=== PATIENT | female | born 1945 | race Caucasian/White ===

== ENCOUNTER 2018-08-11 05:30 | Inpatient (IN) | payer OTHER ==
[2018-07-22 12:56] VITALS: BMI 26.6
[2018-08-11] MEDS ORDERED: CEFAZOLIN 1 GM in DEXTROSE 5%-WATER - 100 ML IVPB ONE (08:23)
--- NOTE | 2018-08-11 08:26 | HP ---
History & Physical Update - History History: No Change - Physical Physical: No Change - Assessment Assessment: No Change - Plan Plan: No Change (Initial H&P is located in pateint's chart and will be scanned into her e-chart LAURA. Here today for elective open abdominal procedure to remove para-aortic cystic mass.)
[2018-08-11] MEDS ORDERED: HEPARIN NA (PORCINE) 5,000 UNITS/ML 1ML VIAL ONE (09:06)
[2018-08-11] MEDS ORDERED: POVIDONE-IODINE OINTMENT 10% - 28.4 GM TUBE ONE (09:06)
[2018-08-11] MEDS ORDERED: fentaNYL CITRATE 250 MCG/5 ML VIAL ONE (09:15)
[2018-08-11] MEDS ORDERED: MIDAZOLAM HCL 2 MG/2 ML SINGLE DOSE VIAL ONE ×2 (09:15)
[2018-08-11] MEDS ORDERED: PROPOFOL 20 ML ONE (09:15)
[2018-08-11] MEDS ORDERED: ROCURONIUM BROMIDE 50 MG/5 ML VIAL ONE ×2 (09:15→10:16)
--- NOTE | 2018-08-11 09:18 | HP ---
Admitting History and Physical - Admission History of Present Illness: 73 year old woman with a slow growing mass in the retroperitoneum between aorta and IVC. The mass measured 7 cm x 4 x [address] scan with calcified wall and contents. She has no pain or lower extremity neurologic symptoms. History Source: Patient, Medical Record Limitations to Obtaining History: No Limitations - Smoking History Smoking history: Never smoked Have you smoked in the past 12 months: No - Alcohol/Substance Use Hx Alcohol Use: No Home Medications - Allergies Allergies/Adverse Reactions: Allergies Allergy/AdvReac Type Severity Reaction Status Date / Time No Known Drug Allergies Allergy Verified 08/11/18 07:58 - Home Medications Home Medications: Ambulatory Orders Aspirin Coated [Ecotrin -] 81 mg PO DAILY 07/22/18 Calcium Carbonate [Calcium] 500 mg PO DAILY 07/22/18 Cholecalciferol (Vitamin D3) [Vitamin D3] 1,000 unit PO DAILY 07/22/18 Magnesium Oxide [Magnesium] 400 mg PO DAILY 07/22/18 Physical Examination Vital Signs: Vital Signs Temperature 97.8 F 08/11/18 07:29 Pulse Rate 66 08/11/18 07:29 Respiratory Rate 18 08/11/18 07:29 Blood Pressure 136/71 08/11/18 07:29 O2 Sat by Pulse Oximetry (%) 98 08/11/18 07:30 Constitutional: Yes: No Distress Eyes: Yes: WNL HENT: Yes: WNL Neck: Yes: WNL, Supple Cardiovascular: Yes: Regular Rate and Rhythm Respiratory: Yes: Regular Gastrointestinal: Yes: Soft. No: Tenderness Extremities: Yes: WNL Edema: No Peripheral Pulses WNL: Yes Problem List - Problems (1) Retroperitoneal mass Assessment/Plan: Slowly enlarging mass between aorta and IVC. Possible etiologies include teratoma, cystic mass, lymphoma. CT does not suggest a vascular etiology. Plan resection. Code(s): R19.00 - INTRA-ABD AND PELVIC SWELLING, MASS AND LUMP, UNSP SITE
[2018-08-11] MEDS ORDERED: LIDOCAINE HCL/PF 2% SDV 5ML VIAL ONE (09:44)
[2018-08-11] MEDS ORDERED: ePHEDrine SULFATE 50 MG/1 ML AMPULE ONE (09:45)
[2018-08-11] MEDS ORDERED: ceFAZolin SODIUM 1 GM VIAL IVPB ONE (09:55)
[2018-08-11] MEDS ORDERED: DEXAMETHASONE SOD PHOSPHATE 4 MG/1 ML VIAL ONE (10:43)
[2018-08-11] MEDS ORDERED: NEOSTIGMINE METHYLSULFATE 0.5 MG/ML - 10 ML MDV ONE (11:18)
[2018-08-11] MEDS ORDERED: GLYCOPYRROLATE 0.2 MG/1 ML VIAL ONE ×2 (11:18)
--- NOTE | 2018-08-11 11:41 | OP ---
Operative Note - Note: Operative Date: 08/11/18 Pre-Operative Diagnosis: Retroperitoneal mass Operation: Excision retroperitoneal mass Findings: 8 x x4 x 4 cm mass in upper retroperitoneum lying between aorta and IVC overlying spine. There was fibrotic adhesion to the vessels but no major vascular attachments. No abnormal abdominal findings Post-Operative Diagnosis: Same as Pre-op Surgeon: Bryant Moyer Front Window Cashier: Sukhjinder Bajwa Anesthesiologist/CLASSIFICATION INSPECTOR: Noni Das Anesthesia: General Specimens Removed: Retroperitoneal mass Estimated Blood Loss (mls): 50 Operative Report Dictated: Yes
[2018-08-11] MEDS ORDERED: ONDANSETRON 4 MG/2 ML VIAL IVPUSH PRN (12:03)
--- NOTE | 2018-08-11 12:03 | SURG ---
Surgery Pricing Associate Note Pricing Associate: Sukhjinder Bajwa PA-C Date of Service: 08/11/18 Diagnosis: Retroperitoneal mass Procedure: Excision retroperitoneal mass I was present for the entirety of the operative procedure. For further detail, please refer to operative report. Visit type - Case Type Case Type: Scheduled - New patient This patient is new to me today: Yes Date on this admission: 08/11/18
[2018-08-11] MEDS ORDERED: ACETAMINOPHEN 325 MG TABLET (FP) PO PRN (12:06)
[2018-08-11] MEDS ORDERED: BISACODYL 5 MG TABLET.DR (FP) PO PRN (12:06)
[2018-08-11] MEDS ORDERED: DOCUSATE SODIUM 100 MG CAPSULE (FP) PO PRN (12:06)
[2018-08-11] MEDS ORDERED: IBUPROFEN 800 MG/8 ML IJ IVPB PRN (12:06)
[2018-08-11] MEDS: HYDROmorphone *PCA* 10MG/50ML DISP.SYRIN PCA SCH (12:22)
[2018-08-11] MEDS: LACTATED RINGERS SOLUTION 1,000 ML IV SCH ×2 (13:00→19:55)
--- NOTE | 2018-08-11 20:15 | OP ---
DATE OF OPERATION: 08/11/2018 SURGEON: Bryant Moyer MD GROUP UNDERWRITER: ROCKY Rodriguez PROCEDURE: Excision of retroperitoneal mass. PREOPERATIVE DIAGNOSIS: Retroperitoneal mass. POSTOPERATIVE DIAGNOSIS: Retroperitoneal mass. ANESTHESIA: General. ANESTHESIOLOGIST: Noni Das MD OPERATIVE FINDINGS: There was an 8 x 4 x 4 cm egg-shaped mass lying in the upper retroperitoneum. It was adjacent to the aorta and inferior vena cava. It was adherent to the vessels, fibrotic tissue and to the spine. There were no major vascular attachments. No other intraabdominal abnormalities were identified on manual evaluation. OPERATIVE PROCEDURE: Following routine patient identification, general anesthesia was induced. The abdomen was prepped with ChloraPrep. Timeout was performed. The peritoneal cavity was entered through an upper midline incision which was carried through subcutaneous tissues and muscle fascia using cautery. Abdominal exploration was carried out with the above-noted findings. A self-retaining retractor was placed. The hepatic flexure and right colon were then mobilized along their lateral border using cautery and LigaSure to allow medial rotation of the large intestine. The duodenum was mobilized along its lateral border with a Sandra maneuver and was also retracted medially away from the underlying mass. The mass was then dissected free using cautery, blunt and sharp dissection to free it on its medial and lateral aspects. Dense fibrous adhesions to the para-aortic tissue were divided sharply. The mass was freed at the superior and inferior margins and then slowly elevated off of the spine using cautery and blunt dissection. It was finally freed from its attachments to the inferior vena cava and removed. It was sent to the pathology department fresh. The retroperitoneum was irrigated and checked for hemostasis, and additional cautery was applied as needed. The retroperitoneal tissues were then reapproximated using running suture of 3-0 Vicryl. The colon was returned to its normal position in the abdomen. The midline fascia was then closed with running suture of 0 PDS. Subcutaneous tissues were irrigated, and the skin was closed with nyasia. Sterile dressing was applied, and the patient was extubated and taken to the recovery room in stable condition. Jena [id number]
[2018-08-12 07:51] LABS: HEMATOCRIT 32.4 % (32.4-45.2); HEMOGLOBIN 10.9 GM/dL (10.7-15.3); MCH 29.9 pg (25.7-33.7); MCHC 33.6 g/dl (32.0-36.0); MEAN PLT VOLUME 8.2 fl (7.5-11.1); PLATELET COUNT 169 K/MM3 (134-434); RBC 3.63 M/mm3 (3.60-5.2); RDW 13.4 % (11.6-15.6); WHITE BLOOD COUNT 9.1 K/mm3 (4.0-10.0)
--- NOTE | 2018-08-12 08:19 | PN ---
Progress Note (short form) - Note Progress Note: POD #1 Alert. Recovering from surgery. C/o incisional tenderness. Adequate pain control via SUGAR PRESSER. Hasn't been OOB yet. Her gold cath was removed at 7AM...hasn' t voided yet. Denies n/v/f/c, CP, palpitations, SOB or DURAN. Last Vital Signs Temp Pulse Resp BP Pulse Ox 98.3 F 78 18 112/62 98 08/12/18 06:17 08/12/18 06:58 08/12/18 06:58 08/12/18 06:58 08/11/18 22:00 GEN: nad PULM: cta bilat COR: rrr ABD: midline incision with nyasia intact. Dressing c/d/i. LE: SCDs bilat, soft, NT. <Sukhjinder Bajwa P - Last Filed: 08/12/18 08:13> - Note Progress Note: POD 1 VSS Abd flat and soft Labs reviewed. OOB Begin PO diet <Bryant Moyer - Last Filed: 08/12/18 08:58> Problem List - Problems (1) Retroperitoneal mass Assessment/Plan: POD #1 s/p Excision retroperitoneal mass. Intra-op findings 8 x x4 x 4 cm mass in upper retroperitoneum lying between aorta and IVC overlying spine. There was fibrotic adhesion to the vessels but no major vascular attachments. Trial of void Pain management via SUGAR PRESSER OOB to chair Incentive spirometer f/u AM LABS Tylenol 650mg PO Q6H prn fever > 100.3F Code(s): R19.00 - INTRA-ABD AND PELVIC SWELLING, MASS AND LUMP, UNSP SITE <Sukhjinder Bajwa P - Last Filed: 08/12/18 08:13> - Problems (1) Retroperitoneal mass Code(s): R19.00 - INTRA-ABD AND PELVIC SWELLING, MASS AND LUMP, UNSP SITE <Bryant Moyer - Last Filed: 08/12/18 08:58>
[2018-08-12 08:26] LABS: ANION GAP 4 MMOL/L (8-16); BLOOD UREA NITROGEN 16 mg/dL (7-18); CALCIUM 8.2 mg/dL (8.5-10.1); CHLORIDE 104 mmol/L (98-107); CO2 29 mmol/L (21-32); CREATININE 0.5 mg/dL (0.55-1.3); GLUCOSE,RANDOM 100 mg/dL (74-106); POTASSIUM 4.1 mmol/L (3.5-5.1); SODIUM 136 mmol/L (136-145)
[2018-08-12] MEDS ORDERED: CHOLECALCIFEROL (VITAMIN D3) 1,000 UNIT TABLET (FP) PO SCH (10:00)
[2018-08-12] MEDS ORDERED: MAGNESIUM OXIDE 400 MG TABLET (FP) PO SCH (10:00)
[2018-08-12] MEDS ORDERED: ASPIRIN COATED 81 MG TABLET.EC PO SCH (10:00)
[2018-08-12] MEDS ORDERED: CALCIUM (OYSTER SHELL) 500 MG TABLET (FP) PO SCH (10:00)
[2018-08-12] MEDS: ENOXAPARIN NA (PORCINE) 40 MG/0.4 ML DISP.SYRIN SQ SCH (10:14)
[2018-08-12] MEDS: LACTATED RINGERS SOLUTION 1,000 ML IV SCH ×2 (12:07→20:43)
--- NOTE | 2018-08-12 12:31 | PN ---
Progress Note, Physician Chief Complaint: s/p laparotomy for excision of paraaortic mass History of Present Illness: post op day one, bicycle repairer for post op pain control - Current Medication List Current Medications: Active Medications Acetaminophen (Tylenol -) 650 mg PO Q4H PRN PRN Reason: FEVER Bisacodyl (Dulcolax -) 10 mg PO ONCE PRN PRN Reason: CONSTIPATION Enoxaparin Sodium (Lovenox -) 40 mg SQ DAILY [facility] Last Admin: 08/12/18 10:14 Dose: 40 mg Fentanyl (Sublimaze Injection -) 50 mcg IVPUSH [id number] PRN PRN Reason: PAIN-PACU ORDER X 4 DOSES ONLY Last Admin: 08/11/18 12:03 Dose: 50 mcg Hydromorphone HCl (Dilaudid Wing Mailer Machine Operator -) 10 mg CARE NURSE RN CARE NURSE RN [facility]; Protocol Stop: 08/14/18 12:03 Last Admin: 08/11/18 12:22 Dose: 10 mg Lactated Ringer's (Lactated Ringers Solution) 1,000 mls @ 125 mls/hr IV ASDIR [facility] Last Admin: 08/12/18 12:07 Dose: 125 mls/hr Ibuprofen (Caldolor Injection -) 800 mg IVPB Q8H PRN PRN Reason: PAIN LEVEL 1-5 Ondansetron HCl (Zofran Injection) 4 mg IVPUSH Q6H PRN PRN Reason: NAUSEA AND/OR VOMITING - Objective Vital Signs: Vital Signs Temperature 98.3 F 08/12/18 06:17 Pulse Rate 84 08/12/18 10:00 Respiratory Rate 20 08/12/18 10:00 Blood Pressure 120/61 08/12/18 10:00 O2 Sat by Pulse Oximetry (%) 98 08/12/18 09:00 Constitutional: Yes: Well Nourished Cardiovascular: Yes: WNL Respiratory: Yes: WNL Gastrointestinal: Yes: WNL Labs: CBC, BMP 08/12/18 07:20 08/12/18 07:20 Assessment/Plan Patient doing well, tolerating sips of fluid, no anesthetic complications, will continue bicycle repairer until patient tolerating diet. Will continue to monitor for pain control
[2018-08-12] MEDS: HYDROmorphone *PCA* 10MG/50ML DISP.SYRIN PCA SCH (15:45)
--- NOTE | 2018-08-12 16:32 | PATH ---
Surgical Pathology Report Patient Name: FADY HOFFMANN Med. Rec. #: [id number] /Age/Gender: 1945 (Age: 73) / F Account: [id number] Location: [address] [place] [address]/[facility] Taken: 08/11/2018 Received: 08/11/2018 Reported: 08/12/2018 Physicians: Bryant Moyer M.D. Specimen(s) Received PARA - AORTIC MASS Clinical History Para-aortic mass Final Diagnosis PARA-AORTIC MASS, EXCISION: CYST WITH DENSE FIBROTIC WALL SHOWING EXTENSIVE CALCIFICATIONS, FOAMY HISTIOCYTES, EOSINOPHILIC DEBRIS, INFLAMMATORY REACTION, AND HEMORRHAGE. NO EPITHELIAL LININGS PRESENT. NEGATIVE FOR MALIGNANCY. CLINICAL CORRELATION RECOMMENDED. This case was discussed with on August 12 2018. Electronically Signed Sammi Morgan M.D. Gross Description Received fresh labeled "para-aortic mass," is a 7.3 x 4.0 x 3.5 cm intact cystic structure. The outer surface is cuevas-pink and smooth. The lumen contains abundant cuevas, necrotic material. The wall of the structure is calcified. The outer surface is inked blue and the specimen is serially sectioned. A security representative portion is placed in RPMI solution and saved in the refrigerator. Senior Business Development Analyst sections are sequentially submitted in 7 cassettes, following decalcification. /08/11/[address] [facility]08/11/2018
[2018-08-13] MEDS: LACTATED RINGERS SOLUTION 1,000 ML IV SCH (05:00)
--- NOTE | 2018-08-13 08:32 | PN ---
Progress Note (short form) - Note Progress Note: POD 2 VSS Abd soft Dressing with serosanguinous drainage No flatus Path: benign cyst Increase activity and diet D/C RF TEST ENGINEER Problem List - Problems (1) Retroperitoneal mass Code(s): R19.00 - INTRA-ABD AND PELVIC SWELLING, MASS AND LUMP, UNSP SITE
[2018-08-13] MEDS ORDERED: oxyCODONE HCL 5 MG TABLET PO PRN (08:50)
[2018-08-13] MEDS: DOCUSATE SODIUM 100 MG CAPSULE (FP) PO SCH ×2 (09:14→21:34)
[2018-08-13] MEDS: ENOXAPARIN NA (PORCINE) 40 MG/0.4 ML DISP.SYRIN SQ SCH (09:14)
[2018-08-13] MEDS: oxyCODONE HCL 5 MG TABLET PO PRN ×2 (14:17→22:11)
[2018-08-13] MEDS: ACETAMINOPHEN 325 MG TABLET (FP) PO PRN (18:03)
[2018-08-14] MEDS: oxyCODONE HCL 5 MG TABLET PO PRN ×2 (04:37→09:09)
--- NOTE | 2018-08-14 08:56 | PN ---
Progress Note (short form) - Note Progress Note: POD 3, s/p Excision retroperitoneal mass Pt seen and examined. No issues overnight, reports "I do not feel like myself yet". C/o lack of appetitie, has been tolerating small portions of food with no n/v. No flatus. Has been oob to the restroom. Denies cp/sob. Vital Signs Temp 98.8 F 08/14/18 05:19 Pulse 81 08/14/18 05:19 Resp 20 08/14/18 05:19 BP 138/75 08/14/18 05:19 Pulse Ox 98 08/13/18 20:44 Intake & Output 08/13/18 08/13/18 08/14/18 11:59 23:59 11:59 Intake Total 1775 1625 Balance 1775 1625 Intake: IV 1500 1000 Lactated Ringers Solution 1500 1000 1,000 ml @ 125 mls/hr IV ASDIR [facility] Rx#: [id number] Oral 275 625 Other: Voiding Method Bedpan Toilet # Unmeasured Voids Void 2 Bowel Movement No No CBC, BMP 08/12/18 07:20 08/12/18 07:20 Gen: awake, alert, nad. Sitting up in chair with breakfast bedside Resp: unlabored on RA Abdo: soft, minimally distended, +bowel sounds, midline dressing intact with minimal old serosanguinous drainage (marked). +TTP around incision. A/P: 73 y/o F w/ retroperitoneal mass, now POD 3, s/p open excision. Afebrile, VSS. No flatus, no BM -Dulcolax ordered x 1 dose -OOB ad josé -Continue regular diet -Zofran 4mg Iv prn nausea -Pain control with Oxy 5/10mg q4hrs prn, Tylenol 650mg q4hrs prn -Likely d/c tomorrow above d/w attending Dr Moyer
[2018-08-14] MEDS: DOCUSATE SODIUM 100 MG CAPSULE (FP) PO SCH ×2 (09:09→23:12)
[2018-08-14] MEDS: ENOXAPARIN NA (PORCINE) 40 MG/0.4 ML DISP.SYRIN SQ SCH (09:09)
[2018-08-14] MEDS ORDERED: BISACODYL 5 MG TABLET.DR (FP) PO ONE (10:00)
[2018-08-14] MEDS ORDERED: PT OWN MED DRAWER 7, Y5N ONE (12:52)
[2018-08-14] MEDS: ACETAMINOPHEN 325 MG TABLET (FP) PO PRN (17:24)
[2018-08-15] MEDS: ACETAMINOPHEN 325 MG TABLET (FP) PO PRN ×3 (00:37→12:42)
[2018-08-15] MEDS: DOCUSATE SODIUM 100 MG CAPSULE (FP) PO SCH (10:01)
[2018-08-15] MEDS: ENOXAPARIN NA (PORCINE) 40 MG/0.4 ML DISP.SYRIN SQ SCH (10:01)
--- NOTE | 2018-08-15 12:32 | PN ---
Progress Note (short form) - Note Progress Note: POD 4, s/p Excision retroperitoneal mass Pt seen and examined. No issues overnight. Reports feeling improved today. Had a BM this morning. Appetite has improved, no n/v. Passing flatus. Has been oob to the restroom. Denies cp/sob. Vital Signs Temp 98.2 F 08/15/18 06:00 Pulse 82 08/15/18 06:00 Resp 18 08/14/18 21:00 BP 143/75 08/15/18 06:00 Pulse Ox 96 08/15/18 08:27 Intake & Output 08/14/18 08/15/18 08/15/18 23:59 11:59 23:59 Intake Total 550 200 Balance 550 200 Intake: Oral 550 200 Other: Voiding Method Toilet Toilet # Unmeasured Voids Void 2 Bowel Movement No Yes # Bowel Movements 1 CBC, BMP 08/12/18 07:20 08/12/18 07:20 Gen: awake, alert, nad. Sitting up in chair with breakfast bedside Resp: unlabored on RA Abdo: soft, minimally distended, +bowel sounds, midline dressing intact with minimal old serosanguinous drainage (marked). +TTP around incision. A/P: 73 y/o F w/ retroperitoneal mass, now POD 4, s/p open excision. Afebrile, VSS. +BM Plan for d/c this afternoon D/c instructions d/w pt, pt verbalized understanding d/w attending Dr Moyer
[2018-08-15 15:41] VITALS: BP 134/79; PULSE 75; TEMP 97.9
== END 2018-08-15 17:45 | disposition home or self-care (01) | DRG 337 ==
LOC: JSAMEDAYSX 05:30 → J6S 17:49
PROVIDERS: ADMIT Surgery; ATTEND Surgery
PROC: 0DNW0ZZ Release Peritoneum, Open Approach (ICD-10-PCS; 2018-08-11)
PROC: 3E1M38Z Irrigation of Peritoneal Cavity using Irrigating Substance, Percutaneous Approach (ICD-10-PCS; 2018-08-11)
PROC: 0DBW0ZZ Excision of Peritoneum, Open Approach (ICD-10-PCS; principal; 2018-08-11 09:00)
DX: R19.09 Other intra-abdominal and pelvic swelling, mass and lump (principal)
CPT/HCPCS: 36415; 80048; 85027; 86850; 86900; 86901; 88305-TC; 94010; 94760; J1644

== ENCOUNTER 2018-10-13 12:54 | Emergency (ER) | payer OTHER | END 2018-10-13 19:00 | disposition home or self-care (01) | LOC: JER 12:54 ==

== ENCOUNTER 2022-02-14 06:40 | Day surgery (SDC) | payer OTHER ==
[2022-02-13 12:57] VITALS: BMI 27.4
[2022-02-14 06:55] VITALS: RESP 16
[2022-02-14] MEDS ORDERED: ROPIVACAINE HCL 0.5% 30ML VIAL ONE (08:34)
[2022-02-14] MEDS ORDERED: MIDAZOLAM HCL 2 MG/2 ML SINGLE DOSE VIAL ONE (08:35)
[2022-02-14] MEDS ORDERED: PROPOFOL 40 ML ONE (08:37)
[2022-02-14] MEDS ORDERED: ceFAZolin SODIUM 1 GM VIAL IVPB ONE (09:25)
[2022-02-14] MEDS ORDERED: PROPOFOL 20 ML ONE (09:27)
[2022-02-14] MEDS ORDERED: ceFAZolin SODIUM 1 GM VIAL ONE (09:29)
[2022-02-14] MEDS ORDERED: oxyCODONE HCL 5 MG TABLET PO PRN (10:05)
[2022-02-14] MEDS ORDERED: ONDANSETRON 4 MG/2 ML VIAL IVPUSH PRN (10:05)
[2022-02-14] MEDS ORDERED: LACTATED RINGERS SOLUTION 1,000 ML IV SCH (10:15)
[2022-02-14 13:20] VITALS: BP 118/56; PULSE 60; TEMP 97.4
== END 2022-02-14 12:40 | disposition home or self-care (01) ==
LOC: JASU-SURG 06:40
PROVIDERS: ATTEND Orthopaedic Surgery
PROC: 0LQ14ZZ Repair Right Shoulder Tendon, Percutaneous Endoscopic Approach (ICD-10-PCS; principal; 2022-02-14 08:45)
PROC: 0RNJ4ZZ Release Right Shoulder Joint, Percutaneous Endoscopic Approach (ICD-10-PCS; 2022-02-14 08:45)
DX: M75.41 Impingement syndrome of right shoulder (principal); M75.101 Unspecified rotator cuff tear or rupture of right shoulder, not specified as traumatic
CPT/HCPCS: 29827; C9781; L8699; 94760

== ENCOUNTER 2023-05-29 04:25 | Day surgery (SDC) | payer OTHER ==
[2023-05-23 14:17] VITALS: BMI 29.6
[2023-05-29 09:25] VITALS: TEMP 97.7
[2023-05-29 10:04] VITALS: BP 122/61; PULSE 81; RESP 19
== END 2023-05-29 10:08 | disposition home or self-care (01) ==
LOC: JASU-ENDO 04:25
PROVIDERS: ATTEND Internal Medicine Gastroenterology
PROC: 0DBN8ZX Excision of Sigmoid Colon, Via Natural or Artificial Opening Endoscopic, Diagnostic (ICD-10-PCS; 2023-05-29)
PROC: 0DBP8ZX Excision of Rectum, Via Natural or Artificial Opening Endoscopic, Diagnostic (ICD-10-PCS; principal; 2023-05-29 09:00)
DX: Z12.11 Encounter for screening for malignant neoplasm of colon (principal); D12.8 Benign neoplasm of rectum; D12.5 Benign neoplasm of sigmoid colon; K57.30 Diverticulosis of large intestine without perforation or abscess without bleeding; K64.8 Other hemorrhoids